=== PATIENT | female | born 1970 | race Caucasian/White ===

== ENCOUNTER → 2017-02-20 | Outpatient (CLI) | payer OTHER | LOC: ULTRA 07:40 → EDSTATUS 12:47 | DX: R10.32 Left lower quadrant pain (principal) ==

== ENCOUNTER → 2017-03-01 | Outpatient (CLI) | payer OTHER | LOC: ULTRA 10:15 | DX: K45.8 Other specified abdominal hernia without obstruction or gangrene (principal) ==